=== PATIENT | female | born 2000 | race Caucasian/White ===

== ENCOUNTER → 2019-06-10 | Outpatient (CLI) | payer BC ==
[2019-06-10 10:41] LABS: Basophils # (A) 0.1 k/uL (0-0.2); Basophils % (A) 1 %; Eosinophils # (A) 0.1 k/uL (0-0.7); Eosinophils % (A) 3 %; HCT 39.1 % (34.0-46.0); HGB 13.3 gm/dL (11.4-16.0); Lymphocytes # (A) 1.3 k/uL (1.0-4.8); Lymphocytes % (A) 30 %; MCH 30.9 pg (25.0-35.0); MCHC 33.9 g/dL (31.0-37.0); MCV 91.1 fL (80.0-100.0); Mean Platelet Volume 9.1; Monocytes # (A) 0.5 k/uL (0-1.0); Monocytes % (A) 12 %; Neutrophils # (A) 2.3 k/uL (1.3-7.7); Neutrophils % (A) 52 %; Platelet Count 234 k/uL (150-450); RBC 4.29 m/uL (3.80-5.40); WBC 4.5 k/uL (3.8-10.6)
[2019-06-10 11:10] LABS: HCG,Qualitative Serum Not Detected
[2019-06-10 14:54] LABS: ALT 14 U/L (8-44); AST 25 U/L (13-35); African American GFR (CKD) 122.1 (60.0-200.0); Cholesterol 166 mg/dL (0-200); Non-African American GFR(CKD) 105.4 (60.0-200.0); Total Bilirubin 0.6 mg/dL (0.2-1.2)
== END | disposition home or self-care (01) ==
LOC: LABWHC1 10:19
PROVIDERS: ATTEND Dermatology
DX: L70.0 Acne vulgaris (principal)
CPT/HCPCS: 36415; 82247; 82465; 82565; 84450; 84460; 84478; 84520; 84703; 85025

== ENCOUNTER → 2020-01-21 | Outpatient (CLI) | payer BC ==
[2020-01-21 14:47] LABS: Basophils # (A) 0.1 k/uL (0-0.2); Basophils % (A) 1 %; Eosinophils # (A) 0.2 k/uL (0-0.7); Eosinophils % (A) 2 %; HCT 42.6 % (34.0-46.0); HGB 13.9 gm/dL (11.4-16.0); Lymphocytes # (A) 1.7 k/uL (1.0-4.8); Lymphocytes % (A) 22 %; MCH 30.8 pg (25.0-35.0); MCHC 32.7 g/dL (31.0-37.0); Mean Platelet Volume 8.2; Monocytes # (A) 0.6 k/uL (0-1.0); Monocytes % (A) 8 %; Neutrophils % (A) 65 %; Platelet Count 298 k/uL (150-450); RBC 4.53 m/uL (3.80-5.40); RDW 13.7 % (11.5-15.5); WBC 7.7 k/uL (3.8-10.6)
[2020-01-21 18:49] LABS: ALT 14 U/L (8-44); AST 20 U/L (13-35); Cholesterol 180 mg/dL (0-200)
[2020-01-21 19:07] LABS: HCG,Quantitative Serum <2.0 mIU/mL
== END | disposition home or self-care (01) ==
LOC: LABWHC1 12:51 → EDSTATUS 14:11
PROVIDERS: ATTEND Nurse Practitioner Family
DX: L70.0 Acne vulgaris (principal)
CPT/HCPCS: 36415; 82465; 84450; 84460; 84478; 84702; 85025

== ENCOUNTER → 2023-04-25 | Outpatient (CLI) | payer BC ==
[2023-04-25 07:55] LABS: Basophils # (A) 0.1 k/uL (0-0.2); Basophils % (A) 2 %; Eosinophils # (A) 0.2 k/uL (0-0.7); Eosinophils % (A) 5 %; HCT 39.1 % (34.0-46.0); HGB 13.2 gm/dL (11.4-16.0); Lymphocytes # (A) 1.3 k/uL (1.0-4.8); Lymphocytes % (A) 28 %; MCH 31.5 pg (25.0-35.0); MCHC 33.8 g/dL (31.0-37.0); MCV 93.2 fL (80.0-100.0); Mean Platelet Volume 8.5; Monocytes # (A) 0.4 k/uL (0-1.0); Monocytes % (A) 9 %; Neutrophils # (A) 2.6 k/uL (1.3-7.7); Neutrophils % (A) 54 %; Platelet Count 229 k/uL (150-450); RDW 12.8 % (11.5-15.5); WBC 4.8 k/uL (3.8-10.6)
[2023-04-25 08:04] LABS: ALT 17 U/L (4-34); AST 26 U/L (14-36); African American GFR (CKD) >90 (>60 ml/min/1.73 sqM); Albumin 4.3 g/dL (3.5-5.0); Alkaline Phosphatase 63 U/L (38-126); Anion Gap 8 mmol/L; Blood Urea Nitrogen 13 mg/dL (7-17); Calcium 9.2 mg/dL (8.4-10.2); Carbon Dioxide 26 mmol/L (22-30); Chloride 106 mmol/L (98-107); Glucose 85 mg/dL (74-99); Non-African American GFR(CKD) >90 (>60 ml/min/1.73 sqM); Potassium 4.1 mmol/L (3.5-5.1); Sodium 140 mmol/L (137-145); Total Bilirubin 0.5 mg/dL (0.2-1.3); Total Protein 6.6 g/dL (6.3-8.2)
[2023-04-25 08:22] LABS: HCG,Quantitative Serum <2.4 mIU/mL
== END | disposition home or self-care (01) ==
LOC: LABT 07:22
PROVIDERS: ATTEND Dermatology MOHS-Micrographic Surgery
DX: L70.0 Acne vulgaris (principal)
CPT/HCPCS: 80053; 82465; 84478; 84702; 85025